=== PATIENT | male | born 1990 | race Caucasian/White ===

== ENCOUNTER → 2022-10-10 09:27 | Outpatient (BNVA) | payer OTHER, SELFPAY | PROVIDERS: Visit Provider Internal Medicine | DX: T20.66XA Corrosion of second degree of forehead and cheek, initial encounter (principal); T54.3X1A Toxic effect of corrosive alkalis and alkali-like substances, accidental (unintentional), initial encounter | CPT/HCPCS: 92004; 99203 ==

== ENCOUNTER → 2022-10-13 13:00 | Outpatient (BNVA) | payer OTHER, SELFPAY | PROVIDERS: Visit Provider Internal Medicine | DX: T20.26XA Burn of second degree of forehead and cheek, initial encounter (principal); T54.3X1A Toxic effect of corrosive alkalis and alkali-like substances, accidental (unintentional), initial encounter | CPT/HCPCS: 99213 ==

== ENCOUNTER 2022-10-19 08:03 | Outpatient (RCR) | payer OTHER, SELFPAY | END 2022-10-25 11:53 | disposition home or self-care (01) | LOC: HO.WCC 08:03 | PROVIDERS: Visit Provider Surgery | DX: T20.16XA Burn of first degree of forehead and cheek, initial encounter (principal); F10.90 Alcohol use, unspecified, uncomplicated | CPT/HCPCS: 99213 ==

== ENCOUNTER → 2022-10-20 14:37 | Outpatient (BNVA) | payer OTHER, SELFPAY | PROVIDERS: Visit Provider Internal Medicine | DX: T20.66XA Corrosion of second degree of forehead and cheek, initial encounter (principal); T54.3X1A Toxic effect of corrosive alkalis and alkali-like substances, accidental (unintentional), initial encounter | CPT/HCPCS: 99213 ==